=== PATIENT | female | born 1960 | race Caucasian/White ===

== ENCOUNTER 2021-03-28 09:40 | Emergency (ER) | payer BC | END 2021-03-28 10:57 | disposition home or self-care (01) | LOC: MADERS 09:40 → EDBD 09:40 → MADERS 10:57 | DX: M54.41 Lumbago with sciatica, right side (principal); E11.9 Type 2 diabetes mellitus without complications; I10 Essential (primary) hypertension; E03.9 Hypothyroidism, unspecified; E78.5 Hyperlipidemia, unspecified; E78.00 Pure hypercholesterolemia, unspecified; Z79.899 Other long term (current) drug therapy | CPT/HCPCS: 72100; 96372; J1040 ==